=== PATIENT | female | born 1990 | race Caucasian/White ===

== ENCOUNTER → 2023-04-21 08:22 | Outpatient (REF) | payer BC, SELFPAY | LOC: WDC 08:22 | PROVIDERS: ATTENDING PHYSICIAN Obstetrics & Gynecology | DX: R92.8 Other abnormal and inconclusive findings on diagnostic imaging of breast (principal) | CPT/HCPCS: 76642 ==

== ENCOUNTER → 2023-07-06 10:07 | Outpatient (REF) | payer BC, SELFPAY ==
[2023-07-11 15:11] LABS: 24 Hour Urine Total Volume Random mL; Creatinine, Urine per Volume 120 mg/dL; Iodine, Urine 121.4 ug/L (26.0-705.0); Iodine/Creatinine Ratio 101.2 ug/g CRT (35.0-540.0); Urine Collection Length Random hr
== END ==
LOC: REG 10:07
PROVIDERS: ATTENDING PHYSICIAN Surgery; FAMILY PHYSICIAN Nurse Practitioner Adult Health
DX: N63.21 Unspecified lump in the left breast, upper outer quadrant (principal)
CPT/HCPCS: 83018

== ENCOUNTER → 2023-07-09 08:00 | Outpatient (REF) | payer BC, SELFPAY ==
[2023-07-08 18:46] LABS: Urine Albumin Negative (Neg - Trace); Urine Bilirubin Negative (Negative); Urine Character Clear (Clear); Urine Color Yellow; Urine Glucose Negative (Negative); Urine Ketone Negative (Negative); Urine Leukocyte Negative (Negative); Urine Nitrite Negative (Negative); Urine Occult Blood Negative (Negative); Urine Specific Gravity 1.015 (<1.030); Urine Urobilinogen Negative (Neg - 1+)
[2023-07-10 20:25] LABS: Bacterial Vaginosis by TMA Negative; Candida glabrata by TMA Negative; Candida species by TMA Negative; Trichomonas vaginalis by TMA Negative
== END ==
LOC: CLAB 08:00
PROVIDERS: ATTENDING PHYSICIAN Nurse Practitioner Adult Health
DX: R39.9 Unspecified symptoms and signs involving the genitourinary system (principal); N89.8 Other specified noninflammatory disorders of vagina
CPT/HCPCS: 88305; 88307; 81003; 81513; 87481; 87661

== ENCOUNTER → 2023-11-26 16:42 | Outpatient (REF) | payer BC, SELFPAY ==
[2023-11-26 17:04] LABS: Urine Albumin Negative (Neg - Trace); Urine Bilirubin Negative (Negative); Urine Character Clear (Clear); Urine Color Yellow; Urine Glucose Negative (Negative); Urine Ketone Negative (Negative); Urine Leukocyte Negative (Negative); Urine Nitrite Negative (Negative); Urine Occult Blood Negative (Negative); Urine Urobilinogen Negative (Neg - 1+); Urine pH 6.5 (5.0-9.0)
== END ==
LOC: REG 16:42
PROVIDERS: ATTENDING PHYSICIAN Obstetrics & Gynecology; FAMILY PHYSICIAN Nurse Practitioner Adult Health
DX: R30.0 Dysuria (principal)
CPT/HCPCS: 81003; 87086

== ENCOUNTER → 2023-12-01 14:42 | Outpatient (REF) | payer BC, SELFPAY | LOC: CPAP 14:42 | PROVIDERS: ATTENDING PHYSICIAN Obstetrics & Gynecology | DX: B37.31 Acute candidiasis of vulva and vagina (principal); N76.0 Acute vaginitis | CPT/HCPCS: 81513; 87481; 87661 ==

== ENCOUNTER → 2024-01-02 08:02 | Outpatient (REF) | payer BC, SELFPAY ==
[2024-01-02 09:26] LABS: % Basophils 0.7 % (0-2); % Eosinophils 1.5 % (0-6); % Immature Granulocytes 0.4 % (0-0.5); % Lymphocytes 34.2 % (20.5-51.1); % Monocytes 8.5 % (1.7-9.3); % Neutrophils 54.7 % (42.2-75.2); Absolute Eosinophils 0.1 10^3/uL (0-0.7); Absolute Lymphocytes 1.9 10^3/uL (1.2-3.4); Absolute Monocytes 0.5 10^3/uL (0.1-0.6); Hematocrit 39.5 % (37.0-47.0); Mean Corp Hgb Conc. 32.9 g/dL (33.0-37.0); Mean Corpuscular Hgb 29.5 pg (27.0-31.0); Mean Corpuscular Volume 89.8 fL (81.0-99.0); Mean Platelet Volume 10.4 fL (7.4-10.4); Nucleated Red Blood Cells % 0 %; Platelet Count 245 10^3/uL (130-400); Red Cell Dist. Width 12.5 % (11.5-14.5); White Blood Cell Count 5.4 10^3/uL (4.8-10.8)
[2024-01-02 10:05] LABS: Beta HCG Quantitative < 2.39 mIU/ml; FSH 4.6 mIU/ml; Free T4 0.92 ng/dl (0.78-2.19)
[2024-01-02 10:19] LABS: TSH 1.58 uIU/ml (0.47-4.68)
== END ==
LOC: REG 08:02
PROVIDERS: ATTENDING PHYSICIAN Obstetrics & Gynecology; FAMILY PHYSICIAN Nurse Practitioner Adult Health
DX: N92.5 Other specified irregular menstruation (principal)
CPT/HCPCS: 36415; 82670; 83001; 83002; 84146; 84439; 84443; 84702; 85025

== ENCOUNTER → 2024-01-08 15:38 | Outpatient (REF) | payer BC, SELFPAY | LOC: RAD 15:38 | PROVIDERS: ATTENDING PHYSICIAN Obstetrics & Gynecology; FAMILY PHYSICIAN Nurse Practitioner Adult Health | DX: R10.2 Pelvic and perineal pain (principal) | CPT/HCPCS: 76830; 76856 ==

== ENCOUNTER → 2024-04-05 06:45 | Outpatient (REF) | payer BC, SELFPAY ==
[2024-04-05 07:38] LABS: % Basophils 0.4 % (0-2); % Eosinophils 0.9 % (0-6); % Immature Granulocytes 0.2 % (0-0.5); % Lymphocytes 33.5 % (20.5-51.1); % Monocytes 9.2 % (1.7-9.3); % Neutrophils 55.8 % (42.2-75.2); Absolute Eosinophils 0.1 10^3/uL (0-0.7); Absolute Lymphocytes 1.9 10^3/uL (1.2-3.4); Absolute Monocytes 0.5 10^3/uL (0.1-0.6); Absolute Neutrophils 3.1 10^3/uL (1.4-6.5); Hematocrit 38.8 % (37.0-47.0); Hemoglobin 12.7 g/dL (12.0-16.0); Mean Corp Hgb Conc. 32.7 g/dL (33.0-37.0); Mean Corpuscular Hgb 30.1 pg (27.0-31.0); Mean Corpuscular Volume 91.9 fL (81.0-99.0); Mean Platelet Volume 9.9 fL (7.4-10.4); Nucleated Red Blood Cells % 0 %; Platelet Count 214 10^3/uL (130-400); Red Blood Cell Count 4.22 10^6/uL (4.20-5.40); Red Cell Dist. Width 12.5 % (11.5-14.5); White Blood Cell Count 5.5 10^3/uL (4.8-10.8)
[2024-04-05 08:43] LABS: ALT (SGPT) 14 U/L (0-35); AST (SGOT) 20 U/L (14-36); Albumin 4.3 g/dl (3.5-5.0); Alkaline Phosphatase 55 U/L (38-126); Blood Urea Nitrogen 11 mg/dl (7-17); Calcium 9.2 mg/dl (8.4-10.2); Carbon Dioxide 26 mmol/L (22-30); Chloride 103 mmol/L (98-107); Glucose 94 mg/dl (70-99); HDL Cholesterol 51 mg/dl; LDL Cholesterol, Calculated 114 mg/dl; Sodium 137 mmol/L (135-145); Total Bilirubin 0.7 mg/dl (0.2-1.3); Total Cholesterol 179 mg/dl (50-199); Total Protein 6.9 g/dl (6.3-8.2); Triglyceride 73 mg/dl (10-149); Very Low Density Lipoprotein 14 mg/dl (0-30); eGFR > 60.00
[2024-04-05 08:45] LABS: TSH Reflex To Free T4 2.41 uIU/ml (0.47-4.68)
== END ==
LOC: REG 06:45
PROVIDERS: ATTENDING PHYSICIAN Nurse Practitioner Adult Health
DX: Z13.220 Encounter for screening for lipoid disorders (principal); Z00.00 Encounter for general adult medical examination without abnormal findings
CPT/HCPCS: 36415; 80053; 80061; 84443; 85025

== ENCOUNTER → 2024-04-19 16:13 | Outpatient (REF) | payer BC, SELFPAY ==
[2024-04-22 15:33] LABS: Aptima Media Type MultiTest Swab; Chlamydia trachomatis by TMA Negative (Negative); Neisseria gonorrhoeae by TMA Negative (Negative); Specimen Source Vaginal
== END ==
LOC: CPAP 16:13
PROVIDERS: ATTENDING PHYSICIAN Nurse Practitioner Family
DX: Z11.3 Encounter for screening for infections with a predominantly sexual mode of transmission (principal)
CPT/HCPCS: 87491; 87591

== ENCOUNTER → 2024-04-20 16:31 | Outpatient (REF) | payer BC, SELFPAY ==
[2024-04-20 17:33] LABS: % Basophils 0.3 % (0-2); % Eosinophils 0.7 % (0-6); % Immature Granulocytes 0.3 % (0-0.5); % Lymphocytes 26.2 % (20.5-51.1); % Monocytes 6.6 % (1.7-9.3); % Neutrophils 65.9 % (42.2-75.2); Absolute Eosinophils 0.1 10^3/uL (0-0.7); Absolute Lymphocytes 2.5 10^3/uL (1.2-3.4); Absolute Monocytes 0.6 10^3/uL (0.1-0.6); Absolute Neutrophils 6.2 10^3/uL (1.4-6.5); Hemoglobin 12.2 g/dL (12.0-16.0); Mean Corp Hgb Conc. 33.9 g/dL (33.0-37.0); Mean Corpuscular Hgb 30.9 pg (27.0-31.0); Mean Corpuscular Volume 91.1 fL (81.0-99.0); Mean Platelet Volume 9.8 fL (7.4-10.4); Nucleated Red Blood Cells % 0 %; Platelet Count 225 10^3/uL (130-400); Red Blood Cell Count 3.95 10^6/uL (4.20-5.40); Red Cell Dist. Width 12.1 % (11.5-14.5); Urine Albumin Negative (Neg - Trace); Urine Bilirubin Negative (Negative); Urine Character Clear (Clear); Urine Color Yellow; Urine Glucose Negative (Negative); Urine Ketone Negative (Negative); Urine Leukocyte 1+ (Negative); Urine Nitrite Negative (Negative); Urine Occult Blood Negative (Negative); Urine Specific Gravity 1.025 (<1.030); Urine Urobilinogen Negative (Neg - 1+); White Blood Cell Count 9.4 10^3/uL (4.8-10.8)
[2024-04-20 17:44] LABS: Urine Red Blood Cell 0-2 /HPF (0-2); Urine Squamous Cell >30 /LPF (Few)
[2024-04-20 17:45] LABS: Urine Bacteria Few (Negative); Urine Mucus Few
[2024-04-20 18:18] LABS: ALT (SGPT) 14 U/L (0-35); AST (SGOT) 19 U/L (14-36); Albumin 4.1 g/dl (3.5-5.0); Alkaline Phosphatase 62 U/L (38-126); Blood Urea Nitrogen 18 mg/dl (7-17); Calcium 9.2 mg/dl (8.4-10.2); Carbon Dioxide 26 mmol/L (22-30); Chloride 100 mmol/L (98-107); Glucose 85 mg/dl (70-99); Potassium 3.8 mmol/L (3.5-5.1); Sodium 137 mmol/L (135-145); Total Bilirubin 0.1 mg/dl (0.2-1.3); Total Protein 6.7 g/dl (6.3-8.2); Uric Acid 2.6 mg/dl (2.5-6.2); eGFR > 60.00
[2024-04-20 18:24] LABS: Protein/creatinine Ratio 0.2; Urine Protein 18 mg/dl
[2024-04-21 10:25] LABS: Glycohemoglobin (HgbA1c) 5.4 % (4.0-5.6)
[2024-04-21 13:10] LABS: HIV Combo Negative (Negative)
[2024-04-21 18:43] LABS: Hepatitis B Surface Antigen Negative (Negative)
[2024-04-21 19:01] LABS: Hepatitis C Antibody Negative (Negative)
[2024-04-22 16:47] LABS: Syphilis/T. pallidum Ab Reflex Negative (Negative)
== END ==
LOC: REG 16:31
PROVIDERS: ATTENDING PHYSICIAN Nurse Practitioner Family; FAMILY PHYSICIAN Nurse Practitioner Adult Health
DX: Z32.01 Encounter for pregnancy test, result positive (principal); Z34.90 Encounter for supervision of normal pregnancy, unspecified, unspecified trimester
CPT/HCPCS: 36415; 80053; 81003; 81015; 82570; 83036; 84156; 84550; 84702; 85025; 86780; 86803; 86850; 86900; 86901; 87086; 87340; 87389

== ENCOUNTER → 2024-05-18 13:33 | Outpatient (REF) | payer BC, SELFPAY | LOC: PNTC 13:33 | PROVIDERS: ATTENDING PHYSICIAN Obstetrics & Gynecology | DX: Z34.00 Encounter for supervision of normal first pregnancy, unspecified trimester (principal) | CPT/HCPCS: 36415; 81420 ==

== ENCOUNTER → 2024-05-25 08:29 | Outpatient (REF) | payer BC, SELFPAY | LOC: PNTC 08:29 | PROVIDERS: ATTENDING PHYSICIAN Obstetrics & Gynecology | DX: O09.529 Supervision of elderly multigravida, unspecified trimester (principal); Z87.59 Personal history of other complications of pregnancy, childbirth and the puerperium; Z82.79 Family history of other congenital malformations, deformations and chromosomal abnormalities; O34.211 Maternal care for low transverse scar from previous cesarean delivery | CPT/HCPCS: 76801; 76813 ==

== ENCOUNTER → 2024-06-22 10:00 | Outpatient (REF) | payer BC, SELFPAY | LOC: PNTC 10:00 | PROVIDERS: ATTENDING PHYSICIAN Obstetrics & Gynecology | DX: O09.529 Supervision of elderly multigravida, unspecified trimester (principal); Z82.79 Family history of other congenital malformations, deformations and chromosomal abnormalities; O36.4XX0 Maternal care for intrauterine death, not applicable or unspecified | CPT/HCPCS: 76815 ==

== ENCOUNTER → 2024-07-15 10:41 | Outpatient (REF) | payer BC, SELFPAY ==
[2024-07-15 12:35] LABS: TSH Reflex To Free T4 1.27 uIU/ml (0.47-4.68)
[2024-07-16 18:48] LABS: Thyroglobulin 9.9 ng/mL (1.3-31.8); Thyroglobulin Antibodies <1.5 IU/mL (0.0-4.0)
[2024-07-16 19:00] LABS: Thyroid Peroxidase Ab (TPO) 0.5 IU/mL (0.0-9.0)
[2024-07-17 10:20] LABS: Beta-2-Glycoprotein I Ab. IgG <10 SGU (<=20); Beta-2-Glycoprotein I Ab. IgM <10 SMU (<=20)
[2024-07-18 01:20] LABS: Cardiolipin IgA Antibody <10 APL (<=11); Cardiolipin IgM Antibody <10 MPL (<=12); Cardiolipin Igg Antibody <10 GPL (<=14)
== END ==
LOC: REG 10:41
PROVIDERS: ATTENDING PHYSICIAN Obstetrics & Gynecology; FAMILY PHYSICIAN Nurse Practitioner Adult Health; REFERRING PHYSICIAN Internal Medicine Hematology & Oncology
DX: N96 Recurrent pregnancy loss (principal)
CPT/HCPCS: 36415; 84432; 84443; 85610; 85613; 85730; 86146; 86147; 86376; 86800

== ENCOUNTER → 2024-07-25 12:41 | Outpatient (REF) | payer BC, SELFPAY | LOC: RAD 12:41 | PROVIDERS: ATTENDING PHYSICIAN Student in an Organized Health Care Education/Training Program; FAMILY PHYSICIAN Nurse Practitioner Adult Health | DX: N93.9 Abnormal uterine and vaginal bleeding, unspecified (principal) | CPT/HCPCS: 76830; 76856 ==

== ENCOUNTER 2024-07-26 06:30 | Day surgery (SDC) | payer BC, SELFPAY ==
--- NOTE | 2024-07-25 17:30 | HPS.HSE ---
Family Physician
-
Family Physician: NOT KNOW UNKNOWN - PT DOES
Chief Complaint
-
retained products of conception
History of Present Illness
HPI: Patient is a 33yo who is s/p D&E 5 weeks ago who presented with complaints of vaginal bleeding. Patient reports that her bleeding has tapered off but over the weekend she noted large gushes of bright red bleeding with some clots. In
between the periods of bleeding, she will just have brown spotting. She denies pain, lightheadedness, or dizziness. She was sent for a stat ultrasound which showed a thickened endometrium with concern for possible retained products of conception.
D&C was recommended for retained products.
PMHx: recurrent loss, breast fibroadenoma, asthma
Meds: sertraline 50mg daily, albuterol prn
Surghx: C/Sx2, lumpectomy of left breast, D&E
NKDA
Socialhx: denies tobacco, etoh or illicit drug use
Famhx: non-contributory
OBHx: SABx3, C/Sx2
Medical History
Past Medical History
Past Medical History: Reports Asthma
Additional Past Medical History:
recurrent loss, asthma, breast fibroadenoma
Past Surgical History: Reports
Additional Past Surgical History:
C/Sx2, D&E, left breast lumpectomy
Social History
Tobacco: Non-smoker
Alcohol: None
Drug: None
Family History
Family History: Not pertinent
Allergies / Home Medications
Allergies reflects when Allergies were last updated in [facility].
Home Medications with original date entered in [facility]
Allergy/Medication List:
NKDA
Meds: PNV, sertraline 50mg daily, albuterol prn
Review of Systems
-
A 12 point ROS was completed and negative except as noted: Yes
Physical Exam
Physical Exam
General: Well Developed and Well Nourished
HEENT: NormoCephalic
Respiratory: Non Labored Respirations
Cardiac: Regular Rhythm
Genito-urinary: Other (cervix visually closed, small amount of brown discharge in vaginal vault, no active bleeding from the cervix.)
Skin: Warm and Dry
Neuro: Awake and Alert
Psych: Calm
Impression/Plan
-
IMPRESSION:
Patient is a who presents for D&C for retained products of conception
PLAN:
- Patient with intermittent heavy bleeding s/p D&E after 16 week loss 5 weeks ago. Pelvic ultrasound concerning for possible retained products of conception. Given patient's symptoms and ultrasound findings recommend D&C for retained products. Plan
to review consent with patient in [facility] prior to surgery
- Patient will need T&S and CBC prior to procedure
- Doxycycline 200mg PO within 1hr of the procedure
- Post-op expectations reviewed with patient
- Plan for ultrasound guidance during the procedure
[2024-07-26] VITALS (10 sets, daily range): BP systolic 97–118; BP diastolic 56–79; BMI 27.4
[2024-07-26] MEDS: VIBRAMYCIN 200 MG PO (10:29)
[2024-07-26 11:06] LABS: Hematocrit 39.3 % (37.0-47.0); Hemoglobin 13.2 g/dL (12.0-16.0)
[2024-07-26] MEDS: NORMOSOL-R/PLASMALYTE-A 1000 IV (11:12)
--- NOTE | 2024-07-27 02:45 | OR.RPT ---
Operative Report
Operative Report
Date of procedure: 07/26/2024
Preop diagnosis: retained products of conception
Postop diagnosis: same
Surgeon: Dhara
Procedure: suction dilation and curettage under ultrasound guidance
Anesthesia: General, Dr. Mcclendon
EBL: 20mL
Findings: Bimanual exam revealed normal sized retroverted uterus. Normal appearing cervix without lesions or masses. Small amount of blood in the vaginal vault. No active bleeding. There appeared to be evidence of retained products while performing
suction curettage. Ultrasound at the end of the procedure with no evidence of retained products.
Complications: none
Pathology: products of conception
Indication: Patient is a 33yo s/p D&E after a 16 week 5 weeks ago. Since the weekend, she has had intermittent heavy vaginal bleeding. Pelvic ultrasound was performed and was concerning for retained productions of conception. Given patient's
symptoms and ultrasound findings, recommend proceeding with suction D&C for retained products. Risks, benefits and alternatives discussed with patient and all questions were answered. Consents were signed prior to proceeding.
Procedure:
Patient was taken to the operating room and placed under general anesthesia. She was placed in the dorsal lithotomy position with Lance type stirrups. She was given 200mg Doxycycline PO prior to the procedure for antibiotic prophylaxis. She was
prepped and draped in the normal sterile fashion. A Suero catheter was placed and the bladder was back filled with 250cc of saline to allow for visualization of the endometrium on bedside ultrasound. A Lechuga retractor was placed in the posterior
aspect of the vagina and the anterior aspect of the vagina revealing good visualization of the cervix. The anterior lip of the cervix was grasped with a single tooth tenaculum. A 7mm curved rigid suction curette was introduced to the fundus with
ultrasound guidance. Vacuum was applied until it was in the green. A suction curettage was then performed with a rotational motion in all quadrants of the uterus. Multiple passes were performed until all products of conception were removed. Care was
taken not to introduce the suction curette with suction applied. There appeared to be no further products of conception on ultrasound after suction curettage. One pass was taken with a sharp curette with little to no return of tissue. The tenaculum
was removed from the anterior lip of the cervix. The tenaculum sites were oozing. Pressure and silver nitrate were used to achieve hemostasis. All instruments were removed from the vagina. The bladder was drained and Suero catheter was removed. All
sponge and instrument counts were correct times 2. Patient was taken to PACU in stable condition.
== END 2024-07-26 13:33 | disposition home or self-care (01) ==
LOC: SDS 06:30
PROVIDERS: ATTENDING PHYSICIAN Student in an Organized Health Care Education/Training Program
DX: O03.4 Incomplete spontaneous abortion without complication (principal)
CPT/HCPCS: 59812; 88305; 76998; 85014; 85018

== ENCOUNTER → 2024-08-19 10:57 | Outpatient (REF) | payer BC, SELFPAY | LOC: CLAB 10:57 | PROVIDERS: ATTENDING PHYSICIAN Advanced Practice Midwife | DX: N76.0 Acute vaginitis (principal) | CPT/HCPCS: 81513; 87481; 87661 ==

== ENCOUNTER → 2024-08-19 12:50 | Outpatient (REF) | payer BC, SELFPAY ==
[2024-08-19 14:00] LABS: % Basophils 0.6 % (0-2); % Eosinophils 0.9 % (0-6); % Immature Granulocytes 0.2 % (0-0.5); % Lymphocytes 32.2 % (20.5-51.1); % Monocytes 8.5 % (1.7-9.3); % Neutrophils 57.6 % (42.2-75.2); Absolute Eosinophils 0.1 10^3/uL (0-0.7); Absolute Lymphocytes 2.1 10^3/uL (1.2-3.4); Absolute Monocytes 0.5 10^3/uL (0.1-0.6); Absolute Neutrophils 3.7 10^3/uL (1.4-6.5); Hemoglobin 13.6 g/dL (12.0-16.0); Mean Corpuscular Hgb 31.2 pg (27.0-31.0); Mean Corpuscular Volume 91.7 fL (81.0-99.0); Nucleated Red Blood Cells % 0 %; Platelet Count 206 10^3/uL (130-400); Red Blood Cell Count 4.36 10^6/uL (4.20-5.40); Red Cell Dist. Width 11.9 % (11.5-14.5); White Blood Cell Count 6.4 10^3/uL (4.8-10.8)
== END ==
LOC: RAD 12:50
PROVIDERS: ATTENDING PHYSICIAN Advanced Practice Midwife; FAMILY PHYSICIAN Nurse Practitioner Adult Health
DX: R10.2 Pelvic and perineal pain (principal)
CPT/HCPCS: 36415; 76830; 76856; 85025

== ENCOUNTER → 2024-10-20 10:31 | Outpatient (REF) | payer BC, SELFPAY ==
[2024-10-22 15:40] LABS: Beta-2-Glycoprotein I Ab. IgA <10 SAU (<=20)
[2024-10-22 22:43] LABS: Anticoagulant Med Neutralizati Not Performed (Not Performed); Neutralized dRVTT Screen Ratio Not Performed (<=1.20); Prothrombin Time 12.9 s (12.0-15.5); dRVTT 1.1 Mix Ratio Not Performed (<=1.20); dRVTT Confirmation Ratio Not Performed (<=1.20); dRVTT Screen Ratio 0.85 (<=1.20)
== END ==
LOC: WDC 10:31
PROVIDERS: ATTENDING PHYSICIAN Obstetrics & Gynecology; FAMILY PHYSICIAN Nurse Practitioner Adult Health; OTHER PHYSICIAN Internal Medicine Hematology & Oncology; REFERRING PHYSICIAN Obstetrics & Gynecology
DX: N96 Recurrent pregnancy loss (principal); Z12.31 Encounter for screening mammogram for malignant neoplasm of breast
CPT/HCPCS: 36415; 77063; 77067; 85610; 85613; 85730; 86146; 86147

== ENCOUNTER → 2024-10-31 16:00 | Outpatient (REF) | payer BC, SELFPAY ==
[2024-10-31 17:24] LABS: Beta HCG Quantitative 86.27 mIU/ml
== END ==
LOC: RAD 16:00
PROVIDERS: FAMILY PHYSICIAN Nurse Practitioner Adult Health
DX: Z32.01 Encounter for pregnancy test, result positive (principal)
CPT/HCPCS: 36415; 84702

== ENCOUNTER → 2024-11-02 09:10 | Outpatient (REF) | payer BC, SELFPAY ==
[2024-11-02 10:19] LABS: Beta HCG Quantitative 206.02 mIU/ml
== END ==
LOC: REG 09:10
PROVIDERS: ATTENDING PHYSICIAN Obstetrics & Gynecology; FAMILY PHYSICIAN Nurse Practitioner Adult Health
DX: Z32.01 Encounter for pregnancy test, result positive (principal)
CPT/HCPCS: 36415; 84702

== ENCOUNTER → 2024-11-04 09:46 | Outpatient (REF) | payer BC, SELFPAY ==
[2024-11-04 12:45] LABS: Beta HCG Quantitative 541.53 mIU/ml
== END ==
LOC: REG 09:46
PROVIDERS: ATTENDING PHYSICIAN Obstetrics & Gynecology; FAMILY PHYSICIAN Nurse Practitioner Adult Health
DX: Z32.01 Encounter for pregnancy test, result positive (principal)
CPT/HCPCS: 36415; 84702

== ENCOUNTER → 2024-11-09 14:55 | Outpatient (REF) | payer BC, SELFPAY | LOC: WDC 14:55 | PROVIDERS: ATTENDING PHYSICIAN Obstetrics & Gynecology; FAMILY PHYSICIAN Nurse Practitioner Adult Health | DX: Z86.018 Personal history of other benign neoplasm (principal) | CPT/HCPCS: 76641 ==

== ENCOUNTER → 2024-12-12 11:16 | Outpatient (REF) | payer BC, SELFPAY ==
[2024-12-12 12:23] LABS: Urine Character Clear (Clear)
[2024-12-12 12:24] LABS: Hematocrit 37.0 % (37.0-47.0); Hemoglobin 12.6 g/dL (12.0-16.0); Mean Corp Hgb Conc. 34.1 g/dL (33.0-37.0); Mean Corpuscular Volume 92.0 fL (81.0-99.0); Nucleated Red Blood Cells % 0 %; Platelet Count 218 10^3/uL (130-400); Red Cell Dist. Width 12.3 % (11.5-14.5)
[2024-12-12 14:22] LABS: Glycohemoglobin (HgbA1c) 5.1 % (4.0-5.6)
[2024-12-12 22:42] LABS: Beta HCG Quantitative 115560.00 mIU/ml
[2024-12-13 00:33] LABS: Hepatitis B Surface Antigen Negative (Negative)
[2024-12-13 00:51] LABS: Hepatitis C Antibody Negative (Negative)
[2024-12-13 14:56] LABS: Syphilis/T. pallidum Ab Reflex Negative (Negative)
== END ==
LOC: REG 11:16
PROVIDERS: ATTENDING PHYSICIAN Obstetrics & Gynecology; FAMILY PHYSICIAN Nurse Practitioner Adult Health
DX: Z32.01 Encounter for pregnancy test, result positive (principal)
CPT/HCPCS: 36415; 81003; 83036; 84702; 85025; 86704; 86706; 86762; 86780; 86803; 86850; 86900; 86901; 87086; 87340; 87389

== ENCOUNTER → 2024-12-21 13:15 | Outpatient (REF) | payer BC, SELFPAY | LOC: CLAB 13:15 | PROVIDERS: ATTENDING PHYSICIAN Obstetrics & Gynecology | DX: Z32.01 Encounter for pregnancy test, result positive (principal) | CPT/HCPCS: 87491; 87591 ==

== ENCOUNTER → 2024-12-22 16:39 | Outpatient (REF) | payer BC, SELFPAY ==
[2024-12-22 17:08] LABS: Hematocrit 35.0 % (37.0-47.0); Hemoglobin 11.8 g/dL (12.0-16.0); Mean Corp Hgb Conc. 33.7 g/dL (33.0-37.0); Mean Corpuscular Volume 91.1 fL (81.0-99.0); Nucleated Red Blood Cells % 0 %; Platelet Count 204 10^3/uL (130-400); Red Cell Dist. Width 12.6 % (11.5-14.5); Urine Character Clear (Clear)
[2024-12-22 17:32] LABS: ALT (SGPT) 14 U/L (0-35); AST (SGOT) 20 U/L (14-36); Albumin 4.4 g/dl (3.5-5.0); Alkaline Phosphatase 67 U/L (38-126); Blood Urea Nitrogen 15 mg/dl (7-17); Calcium 9.4 mg/dl (8.4-10.2); Carbon Dioxide 25 mmol/L (22-30); Chloride 103 mmol/L (98-107); Glucose 83 mg/dl (70-99); Potassium 3.8 mmol/L (3.5-5.1); Sodium 134 mmol/L (135-145); Total Protein 7.3 g/dl (6.3-8.2); eGFR > 60.00
[2024-12-22 18:59] LABS: Uric Acid 3.0 mg/dl (2.5-6.2)
== END ==
LOC: PNTC 16:39
PROVIDERS: ATTENDING PHYSICIAN Student in an Organized Health Care Education/Training Program
DX: Z36.0 Encounter for antenatal screening for chromosomal anomalies (principal); Z36.82 Encounter for antenatal screening for nuchal translucency
CPT/HCPCS: 36415; 80053; 81003; 82570; 84156; 84550; 85025

== ENCOUNTER → 2024-12-26 17:22 | Outpatient (REF) | payer BC, SELFPAY | LOC: PNTC 17:22 | PROVIDERS: ATTENDING PHYSICIAN Student in an Organized Health Care Education/Training Program | DX: Z36.0 Encounter for antenatal screening for chromosomal anomalies (principal); Z36.82 Encounter for antenatal screening for nuchal translucency | CPT/HCPCS: 76801 ==

== ENCOUNTER → 2025-01-04 11:21 | Outpatient (REF) | payer BC, SELFPAY | LOC: PNTC 11:21 | PROVIDERS: ATTENDING PHYSICIAN Obstetrics & Gynecology | DX: O28.8 Other abnormal findings on antenatal screening of mother (principal); O09.511 Supervision of elderly primigravida, first trimester; O46.91 Antepartum hemorrhage, unspecified, first trimester | CPT/HCPCS: 76801; 76813 ==

== ENCOUNTER → 2025-01-05 14:14 | Outpatient (REF) | payer BC, SELFPAY | LOC: PNTC 14:14 | PROVIDERS: ATTENDING PHYSICIAN Obstetrics & Gynecology | DX: Q90.9 Down syndrome, unspecified (principal) | CPT/HCPCS: 59015; 76801; 76945 ==